=== PATIENT | male | born 1940 | race Caucasian/White ===

== ENCOUNTER 2019-06-21 18:23 | Inpatient (IN) ==
[2019-06-21] MEDS ORDERED: ACETAMINOPHEN 500 MG TAB PO STA (19:26)
[2019-06-21] MEDS ORDERED: SODIUM CHLORIDE 0.9% 1000ML 1,000 ML IV ONE ×2 (19:26→21:03)
[2019-06-21 20:17] LABS: Albumin Level 2.7 gm/dl (3.4-5.0); BUN Creatinine Ratio 23.1 (10-20); Bilirubin Direct 0.4 mg/dl (0-0.2); Calcium 8.7 mg/dl (8.5-10.1); Creatinine Clr Calc Pharmacy 72.7 ml/min; Est GFR (African American) 92.1; Est GFR (Non-African American) 79.5; Magnesium 1.9 mg/dl (1.8-2.4); Potassium 3.8 mmol/L (3.5-5.1)
--- NOTE | 2019-06-21 20:17 | CT Scan Report ---
CT head/brain wo con CLINICAL HISTORY: 78 years-old Male with fall ams. Acute fall with altered mental status TECHNIQUE: Multiple axial CT images of the head were obtained without contrast. A dose lowering tech nique was utilized adhering to the principles of ALARA. CT DOSE: 614.27 mGy.cm COMPARISON: None. FINDINGS: No acute intracranial hemorrhage, midline shift, intracranial mass, hydrocephalus, territorial ischem ia or abnormal extra-axial collection. Mild age-related involutional changes. Patchy white matter hyp odensities suggest chronic microvascular ischemic disease. Cerebral vascular calcifications are noted . The calvarium is intact. Large mastoid effusions with completely opacified mastoid air cells bilater ally. Fluid is noted within the bilateral middle ear cavities, left greater than right. Moderate ethm oid and mild maxillary and sphenoid sinus mucosal thickening. Soft tissues are unremarkable. Prior bi lateral cataract repair. IMPRESSION: 1. No acute intracranial abnormality or calvarial fracture. 2. Age-related involutional changes with chronic microvascular ischemic disease. 3. Paranasal sinus disease as above with large bilateral mastoid effusions and fluid noted within the bilateral middle ear cavities, left greater than right. ACT 112: Negative or not required by law. The above report was generated using voice recognition software. It may contain grammatical, syntax o r spelling errors. Electronically signed by: Boyd Candelario M.D. 06/21/2019 8:16 PM
[2019-06-21 20:22] LABS: Bilirubin,Total 1.3 mg/dl (0.2-1); Troponin I 0.017 ng/ml (0-0.045)
[2019-06-21 20:23] LABS: Acanthocytes 1+; Anisocytosis Present; Basophils # (auto) 0.02 K/uL (0-0.2); Basophils % (auto) 0.2 %; Eosinophils # (auto) 0.26 K/uL (0-0.5); Eosinophils % (auto) 2.1 %; Hematocrit (blood only) 27.9 % (42-52); Hypochromasia Present; INR 1.2 (0.9-1.1); Immature Granulocytes # (auto) 0.23 K/uL (0.00-0.02); Immature Granulocytes % (auto) 1.9 %; Lymphocytes # (auto) 0.46 K/uL (1.2-3.4); Lymphocytes % (auto) 3.8 %; Mean Corpuscular Hemoglobin 24.5 pg (25-34); Mean Corpuscular Hgb Conc 32.3 g/dL (32-36); Monocytes # (auto) 0.09 K/uL (0.11-0.59); Monocytes % (auto) 0.7 %; Neutrophils # (auto) 11.07 K/uL (1.4-6.5); Neutrophils % (auto) 91.3 %; Ovalocytes 1+; Platelet Count 58 K/uL (130-400); Platelet Estimate Decreased (Normal); Polychromasia 1+; Prothrombin Time 11.9 Seconds (9.0-12.0); RDW Coefficient of Variation 23.6 % (11.5-14.5); Red Blood Count 3.67 M/uL (4.7-6.1); White Blood Count 12.13 K/uL (4.8-10.8)
[2019-06-21] MEDS ORDERED: OSELTAMIVIR PHOSPHATE 75 MG CAP PO STA (20:56)
--- NOTE | 2019-06-21 21:02 | XRay Report ---
XR chest 1V portable HISTORY: 78 years-old Male Cough, Sepsis acute cough with sepsis COMPARISON: Chest radiograph 10/21/2018 TECHNIQUE: Portable AP view of the chest FINDINGS: Cardiac silhouette is normal in size. No pneumothorax, overt pulmonary edema or large pleural effusio n. There is mild bilateral hilar prominence. Bilateral reticulonodular opacities are noted with ill-d efined left basilar airspace densities. Mild right hemidiaphragm elevation. Degenerative changes of t he shoulders and spine. IMPRESSION: 1. Reticular nodular opacities with ill-defined left basilar alveolar densities suggest multifocal in fectious or inflammatory pneumonitis. 2. Bilateral hilar prominence is new from 10/21/2018 and may reflect associated adenopathy. Follow-up after treatment course recommended to document resolution. ACT 112: Negative or not required by law. The above report was generated using voice recognition software. It may contain grammatical, syntax o r spelling errors. Electronically signed by: Boyd Candelario M.D. 06/21/2019 9:01 PM
[2019-06-21 21:30] LABS: Appearance Urine Clear (Clear); Bacteria Urine Automated Negative (Negative); Blood Urine Negative (Negative); Color Urine Dark Yellow; Epithelial Cell Urine Auto 0-5 /lpf (0-5); Glucose Urine UA Negative (Negative); Ketones Urine Negative (Negative); Leukocyte Esterase Urine Trace (Negative); Nitrite Urine Negative (Negative); Protein Urine Trace (Negative); RBC Urine Automated 0-4 /hpf (0-4); Specific Gravity Urine 1.024 (1.000-1.030); Urobilinogen Urine Negative (Negative); pH Urine 5.5 (4.5-7.5)
[2019-06-21 21:46] LABS: Bilirubin Urine Negative (Negative); Ictotest Urine Negative (Negative)
[2019-06-21] MEDS ORDERED: ACETAMINOPHEN 325 MG TAB PO PRN (23:43)
[2019-06-21] MEDS ORDERED: ONDANSETRON INJ 2 MG/ML 2 ML VIAL IV PRN (23:43)
[2019-06-22] MEDS ORDERED: CEFEPIME CONSULT ACTIVE PRN (00:05)
[2019-06-22] MEDS: CEFEPIME 2,000 MG in SYRINGE 7.5 ML IV SCH ×3 (00:22→23:33)
[2019-06-22] MEDS: SODIUM CHLORIDE 0.9% 1000ML 1,000 ML IV SCH ×2 (00:23→13:42)
[2019-06-22] MEDS: DOXYCYCLINE HYCLATE 100 MG CAP PO SCH ×3 (00:23→21:34)
--- NOTE | 2019-06-22 00:54 | History and Physical Report ---
DATE OF ADMISSION: 06/21/2019 CHIEF COMPLAINT: Fall and weakness. 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 He went to bathroom and he fell in the bathroom, brought in here. His daughters are in the room. The patient has some fever at home, has cold symptoms in the last few days with runny nose and cough with small amount of phlegm. Denies any chest pain, no shortness of breath, no nausea, no vomiting, no diarrhea, no constipation, no headache, no dizziness, no blurred visions. Has some sore throat. Appetite is okay. Ambulates with a cane. Normal bladder movements. No rash anywhere. Currently resting comfortably and hemodynamically stable. ALLERGIES: No known drug allergies. PAST MEDICAL HISTORY: As mentioned above. PAST SURGICAL HISTORY: Cholecystectomy. MEDICATIONS: Aspirin 81 mg daily, multivitamin daily, omega fish oil 1 capsule daily. FAMILY HISTORY: Significant for father who had colon cancer. SOCIAL HISTORY: Quit smoking 40 years ago, quit chewing tobacco 20 years ago. Alcohol very rarely. Lives with his . REVIEW OF SYMPTOMS: As per HPI. Rest of review of systems is negative. PHYSICAL EXAMINATION: GENERAL: The patient is old and frail, not in acute distress. VITAL SIGNS: Temperature 38, pulse 115, respiratory rate 22, blood pressure 133/73, oxygen 96% room air. HEENT: No pallor, no icterus. Pupils equal, round, reactive to light. NECK: No JVD, no neck masses, no carotid bruits. CARDIOVASCULAR: S1, S2 heard. Tachycardia. No murmurs. RESPIRATORY SYSTEM: Normal AP diameter. No accessory muscle use. No wheezing. Mild bilateral rhonchi heard. ABDOMEN: Soft, bowel sounds present. Nontender. No distention. CENTRAL NERVOUS SYSTEM: Cranial nerves II-XII grossly intact. Nonfocal. EXTREMITIES: No edema, no erythema. LABORATORY DATA: WBC 12.1, hemoglobin 9, hematocrit 27, platelets 58. PT 11.9, INR 1.2. Sodium 135, potassium 3.8, chloride 102, bicarbonate 26, BUN 21, creatinine 0.9, serum glucose 100, lactate 1.5, calcium 8.7, magnesium 1.9, total bilirubin 1.3, direct bilirubin 0.4, AST 42, ALT 37, alkaline phosphatase 280. Troponin I 0.017. Urinalysis, trace leukocyte esterase. Influenza A positive. IMAGING: Chest x-ray, extranodal opacity with ill-defined left basilar alveolar densities suggestive of multifocal infectious or inflammatory pneumonitis, bilateral hilar prominence, new from 10/13/2008 associated adenopathy. . Followup of treatment course recommended to document resolution. CT of the head, no acute intracranial abnormality, microvascular ischemic changes, paranasal sinus disease with large bilateral mastoid effusions and fluid noted within the bilateral middle ear cavities, left greater than right. ASSESSMENT AND PLAN: This is a 78-year-old male who presents with weakness and fall at home and found to be flu positive. 1. Influenza positive, [place] weak and fell in bathroom.Having cold like symptoms in the last couple of days with cough, runny nose and fever. Tamiflu given in the ER, we will continue Tamiflu 75 mg b.i.d., gentle fluids, symptomatic treatment. Monitor in the medical floor. 2. Multifocal pneumonia on the chest x-ray. We will start him on cefepime and doxycycline. Follow the response. We will await sputum culture and blood cultures. 3. Mastoid effusions, fluid in the middle ear. The patient had scarlet fever as child and left eardrum damage. Antibiotics as above ( cefepime to cover pseudomonas). Follow up with ENT. 4. Elevated LFTs with total bilirubin 1.3, alkaline phosphatase of 280. We will follow repeat labs in a.m., probably from the ongoing viral infection. 4. Chronic anemia, 9, was 10 in the September. We will monitor. 5. Chronic thrombocytopenia, platelets were in the 97 last time in September, currently 58, probably from viral illness. Needs to followup. 6. History of prostate cancer, 6 years ago, mild, he refused treatment. Needs followup. 7. History of hypertension, no longer on medications. We will monitor the blood pressure while in the hospital. 8. Deep venous thrombosis prophylaxis, sequential compression devices for now. 9. Disposition: Closely monitor in the medical floor. Level 1 full code only if there is a chance of recovery. PT and OT prior to discharge. Social Service to help with discharge planning. OMAR
--- NOTE | 2019-06-22 01:06 | Emergency Department Note ---
Entered by Rhona Rahman acting as a scribe for Rashel Welsh MD ED Provider Note Name: JENNIFER KU Age: 78 Arrives Via: Ambulance Informant: Patient, Family CC: Fall HPI: [id number] arrives for evaluation of a fall. The patient states that he has been experiencing recent tiredness. Today around 5:30PM he states that he lost his balance and fell in his bathroom but did not hit his head. The patient's family reports that he has had recurrent recent falls in the bathroom and that during today's episode he broke the tank of the toilet when he fell. The patient admits that he is currently not in any pain but his family states that he told them he had "burning" left sided upper back pain below his shoulder when he came to the ED today. Additionally, the family reports that the patient began experiencing a cough 1 day ago associated with rhinorrhea and fever. He was given DayQuil today for relief.Family also notes that he has some confusion. Family includes that they noticed erythema on the patient's forehead that was not present prior to his fall. Of note, he is currently not on Prednisone but is using a dermatological cream for cellulitis. The patient does not have any abdominal pain as per family. The patient and his family offer no further concerns at this time. ROS: See above HPI for pertinent positives & negatives. A total of 10 systems re viewed and were otherwise negative. Past Medical History:Psoriasis, cellulitis of leg Past Surgical History:No pertinent surgical history Family History:No pertinent family history Social History:Never smoker Home Medications:Aspirin, multivitamin, [id number] oil, triamcinolone Allergies:No known Vitals: * BP: 163/86 * Pulse: 124 * Resp: 22 * Temp: 38.5 C * O2 Sat: 99 * Delivery: Room Air Physical Exam: GENERAL: Patient is confused, dehydrated, and ill appearing, and in no acute distress. EYES: No scleral icterus, unremarkable pupils. ENT: Mucous membranes are dry, runny nose. NECK: No masses appreciated, nomeningismus, trachea is midline. RESPIRATORY: No dyspnea. Clear to auscultation and equal bilaterally. No wheeze, no rhonchi. Periodic cough. CARDIOVASCULAR: Regular rate and rhythm.No murmurs, rubs, gallops appreciated. GASTROINTESTINAL: Abdomen soft, non-tender, no peritonitis.Bowel sounds positive.No masses appreciated. BACK: No midline tenderness, no CVA tenderness EXTREMITIES: Normal motion all extremities, no cyanosis, no edema. NEUROLOGIC: Alert and oriented, no acute motor or sensory deficits, no focal weakness, cranial nerves grossly intact. SKIN: No rash, no jaundice, no diaphoresis. ED Course: Prior Medical Record, Triage/Nursing Notes, Medications, Allergies reviewed by Me Vital Signs: reviewed and remarkable for febrile/tachy Labs:Reviewed and remarkable for +Influenza A Interventions: Saline Lock, Tamiflu, NSS bolus 1 L IV, Tylenol 1gm PO Imaging:See below EKG: See below Reassessments/Times: * 1909: Past medical records reviewed. The patient was evaluated in room B05. A complete history and physical exam was performed. * 2030: I spoke to Dr. Mack, [facility] Hospitalist who accepts the patient for admission. * 2100: The patient verbally expressed understanding and agreement of the treatment plan. The patient will be evaluated for further treatment. Blood pressure:Normal.No Referral necessary Disposition:Hospitalization Differentials:Differential: Viral, Pharyngitis, Cellulitis, Pneumonia, Influenza, Meningitis, Sepsis, Bacteremia, UTI/Pyelonephritis, Endocrine, Toxicologic, amongst other pathologies entertained. Medical Decision Makin yr old male with cough, shortness of breath and weakness arrives with family after fall at home and worsening weakness. Febrile and tachy on arrival and thus cultures obtained. Clearly dehydrated by exam and thus IV lfuids given. Flu A positive without clear pneumonia. CT Head negative. Will start on Tamiflu as is tolerating PO but he is too confused and off from his baseline to go home. Thrombocytopenia is not new but is a bit lower than previous. Patient's family does not feel comfortable monitoring at home and given the fall risk in patient already thrombocytopenic I think that is understandable. Hospitalist consulted for further management. Impression: * Influenza A * Acute confusion * Syncope * Acute dehydration The scribe's documentation has been prepared under my direction and personally reviewed by me in its entirety. I confirm that the note above accurately reflects all work, treatment, procedures, and medical decision making performed by me. Rashel Welsh MD Impression & Plan Influenza A, Syncope, Acute confusion, Acute dehydration Past Med/Surg History Medical History Cellulitis of leg Psoriasis Surgical History No pertinent past surgical history Social History Preferred Language: Kiswahili Communication Ability: Effective [employer]ishing V[employer] Required: No Beliefs That Will Affect Care: None Current Living Situation: Spouse and Other Current Living Situation Comment: Son. Other Information That Helps Us Care for You: No Feels Safe at Home: Yes Safety Concerns: Feels Safe At This Time Smoking Status: Never smoker Do You Dip or Chew Tobacco: No ; Second Hand Exposure: No ; Tobacco Cessation Education Requested by Patient: No Hx Alcohol Use: No Hx Substance Use: No Results & Data Vital Signs Vital Signs - 24 hr 06/21/19 18:26 06/21/19 18:37 06/21/19 18:45 Temperature 38.5 C H Temperature Source Oral Pulse Rate 119 H 124 H 118 H Pulse Rate [Right Finger] Pulse Rate from SpO2 Sensor 125 H Pulse Rhythm [Right Finger] Pulse Strength [Right Finger] Respiratory Rate 36 H 22 44 H Respiratory Effort / Characteristics Non-Labored Spontaneous Respiratory Depth Normal Respiratory Pattern Regular Blood Pressure 163/86 H 163/86 H Blood Pressure [Right Arm] Blood Pressure Mean 103 111 Blood Pressure Mean [Right Arm] Blood Pressure Position [Right Arm] Pulse Oximetry 99 Oxygen Delivery Method Room Air Sepsis Recent Fever Within 48 Hours No Sepsis New/Unexplained Change in Mental Status No Sepsis Action Taken by Nursing Physician Notified 06/21/19 19:05 06/21/19 19:30 06/21/19 19:47 Temperature Temperature Source Pulse Rate 118 H 130 H 118 H Pulse Rate [Right Finger] Pulse Rate from SpO2 Sensor 118 H 129 H 118 H Pulse Rhythm [Right Finger] Pulse Strength [Right Finger] Respiratory Rate 36 H 27 H 36 H Respiratory Effort / Characteristics Respiratory Depth Respiratory Pattern Blood Pressure 139/76 Blood Pressure [Right Arm] Blood Pressure Mean 92 Blood Pressure Mean [Right Arm] Blood Pressure Position [Right Arm] Pulse Oximetry 98 94 98 Oxygen Delivery Method Sepsis Recent Fever Within 48 Hours Sepsis New/Unexplained Change in Mental Status Sepsis Action Taken by Nursing 06/21/19 20:00 06/21/19 20:01 06/21/19 20:32 Temperature Temperature Source Pulse Rate 116 H 122 H 118 H Pulse Rate [Right Finger] Pulse Rate from SpO2 Sensor 121 H 122 H 123 H Pulse Rhythm [Right Finger] Pulse Strength [Right Finger] Respiratory Rate 31 H 35 H 33 H Respiratory Effort / Characteristics Respiratory Depth Respiratory Pattern Blood Pressure 148/88 H 133/73 Blood Pressure [Right Arm] Blood Pressure Mean 108 91 Blood Pressure Mean [Right Arm] Blood Pressure Position [Right Arm] Pulse Oximetry 85 L 94 96 Oxygen Delivery Method Sepsis Recent Fever Within 48 Hours Sepsis New/Unexplained Change in Mental Status Sepsis Action Taken by Nursing 06/21/19 20:37 06/21/19 20:45 06/21/19 21:00 Temperature 38 C H Temperature Source Oral Pulse Rate 118 H 110 H Pulse Rate [Right Finger] 115 H Pulse Rate from SpO2 Sensor 117 H 110 H Pulse Rhythm [Right Finger] Regular Pulse Strength [Right Finger] Normal Respiratory Rate 22 36 H 30 H Respiratory Effort / Characteristics Non-Labored Respiratory Depth Normal Respiratory Pattern Regular Blood Pressure 124/67 117/60 Blood Pressure [Right Arm] 133/73 Blood Pressure Mean 84 79 Blood Pressure Mean [Right Arm] 93 Blood Pressure Position [Right Arm] Lying Pulse Oximetry 96 94 94 Oxygen Delivery Method Room Air Sepsis Recent Fever Within 48 Hours Sepsis New/Unexplained Change in Mental Status Sepsis Action Taken by Nursing 06/21/19 21:01 06/21/19 21:15 06/21/19 21:30 Temperature Temperature Source Pulse Rate 113 H 109 H 108 H Pulse Rate [Right Finger] Pulse Rate from SpO2 Sensor 111 H 107 H 108 H Pulse Rhythm [Right Finger] Pulse Strength [Right Finger] Respiratory Rate 29 H 32 H 32 H Respiratory Effort / Characteristics Respiratory Depth Respiratory Pattern Blood Pressure 106/60 103/54 L Blood Pressure [Right Arm] Blood Pressure Mean 76 57 Blood Pressure Mean [Right Arm] Blood Pressure Position [Right Arm] Pulse Oximetry 95 94 91 Oxygen Delivery Method Sepsis Recent Fever Within 48 Hours Sepsis New/Unexplained Change in Mental Status Sepsis Action Taken by Nursing 06/21/19 21:31 06/21/19 21:45 Temperature Temperature Source Pulse Rate 107 H 104 H Pulse Rate [Right Finger] Pulse Rate from SpO2 Sensor 107 H 104 H Pulse Rhythm [Right Finger] Pulse Strength [Right Finger] Respiratory Rate 30 H 36 H Respiratory Effort / Characteristics Respiratory Depth Respiratory Pattern Blood Pressure 110/60 Blood Pressure [Right Arm] Blood Pressure Mean 74 Blood Pressure Mean [Right Arm] Blood Pressure Position [Right Arm] Pulse Oximetry 94 94 Oxygen Delivery Method Sepsis Recent Fever Within 48 Hours Sepsis New/Unexplained Change in Mental Status Sepsis Action Taken by Nursing Laboratory Data Result diagrams: 06/21/19 19:37 06/21/19 19:37 Lab Results 06/21/19 06/21/19 06/21/19 Range/Units 19:37 19:37 19:37 WBC 12.13 H (4.8-10.8) K/uL RBC 3.67 L (4.7-6.1) M/uL Hgb 9.0 L (14.0-18.0) g/dL Hct 27.9 L (42-52) % MCV 76.0 L (80-100) fL MCH 24.5 L (25-34) pg MCHC 32.3 (32-36) g/dL RDW Std Deviation 59.0 H (36.4-46.3) fL RDW Coeff of [place] 23.6 H (11.5-14.5) % Plt Count 58 L (130-400) K/uL Immature Gran % (Auto) 1.9 % Neut % (Auto) 91.3 % Lymph % (Auto) 3.8 % [place] % (Auto) 0.7 % Eos % (Auto) 2.1 % Baso % (Auto) 0.2 % Immature Gran # (Auto) 0.23 H (0.00-0.02) K/uL Neut # (Auto) 11.07 H (1.4-6.5) K/uL Lymph # (Auto) 0.46 L (1.2-3.4) K/uL [place] # (Auto) 0.09 L (0.11-0.59) K/uL Eos # (Auto) 0.26 (0-0.5) K/uL Baso # (Auto) 0.02 (0-0.2) K/uL Platelet Estimate Decreased L (Normal) Polychromasia 1+ Hypochromasia Present Anisocytosis Present Ovalocytes 1+ Acanthocytes (Spur) 1+ PT 11.9 (9.0-12.0) Seconds INR 1.2 H (0.9-1.1) Sodium 135 L (136-145) mmol/L Potassium 3.8 (3.5-5.1) mmol/L Chloride 102 (98-107) mmol/L Carbon Dioxide 26 (21-32) mmol/L Anion Gap 7.0 (3-11) BUN 21 H (7-18) mg/dl Creatinine 0.93 (0.6-1.4) mg/dl Est Cr Clr Drug Dosing 72.7 ml/min Est GFR ( Amer) 92.1 Est GFR (Non-Af Amer) 79.5 BUN/Creatinine Ratio 23.1 H (10-20) Glucose 109 H (70-99) mg/dl Lactate (0.4-2.0) mmol/L Calcium 8.7 (8.5-10.1) mg/dl Magnesium 1.9 (1.8-2.4) mg/dl Total Bilirubin 1.3 H (0.2-1) mg/dl Direct Bilirubin 0.4 H (0-0.2) mg/dl AST 42 H (15-37) U/L ALT 37 (12-78) U/L Alkaline Phosphatase 280 H (45-117) U/L Troponin I 0.017 (0-0.045) ng/ml Total Protein 7.0 (6.4-8.2) gm/dl Albumin 2.7 L (3.4-5.0) gm/dl Urine Color Urine Appearance (Clear) Urine pH (4.5-7.5) Ur Specific [place] (1.000-1.030) Urine Protein (Negative) Urine Glucose (UA) (Negative) Urine Ketones (Negative) Urine Blood (Negative) Urine Nitrite (Negative) Urine Bilirubin (Negative) Urine Urobilinogen (Negative) Ur Leukocyte Esterase (Negative) Urine WBC (Auto) (0-5) /hpf Urine RBC (Auto) (0-4) /hpf U Hyaline Cast (Auto) (0-5) /lpf U Epithel Cells (Auto) (0-5) /lpf Urine Bacteria (Auto) (Negative) Influenza Type A Ag (Neg) Influenza Type B Ag (Neg) 06/21/19 06/21/19 06/21/19 Range/Units 19:37 19:56 20:38 WBC (4.8-10.8) K/uL RBC (4.7-6.1) M/uL Hgb (14.0-18.0) g/dL Hct (42-52) % MCV (80-100) fL MCH (25-34) pg MCHC (32-36) g/dL RDW Std Deviation (36.4-46.3) fL RDW Coeff of [place] (11.5-14.5) % Plt Count (130-400) K/uL Immature Gran % (Auto) % Neut % (Auto) % Lymph % (Auto) % [place] % (Auto) % Eos % (Auto) % Baso % (Auto) % Immature Gran # (Auto) (0.00-0.02) K/uL Neut # (Auto) (1.4-6.5) K/uL Lymph # (Auto) (1.2-3.4) K/uL [place] # (Auto) (0.11-0.59) K/uL Eos # (Auto) (0-0.5) K/uL Baso # (Auto) (0-0.2) K/uL Platelet Estimate (Normal) Polychromasia Hypochromasia Anisocytosis Ovalocytes Acanthocytes (Spur) PT (9.0-12.0) Seconds INR (0.9-1.1) Sodium (136-145) mmol/L Potassium (3.5-5.1) mmol/L Chloride (98-107) mmol/L Carbon Dioxide (21-32) mmol/L Anion Gap (3-11) BUN (7-18) mg/dl Creatinine (0.6-1.4) mg/dl Est Cr Clr Drug Dosing ml/min Est GFR ( Amer) Est GFR (Non-Af Amer) BUN/Creatinine Ratio (10-20) Glucose (70-99) mg/dl Lactate 1.5 (0.4-2.0) mmol/L Calcium (8.5-10.1) mg/dl Magnesium (1.8-2.4) mg/dl Total Bilirubin (0.2-1) mg/dl Direct Bilirubin (0-0.2) mg/dl AST (15-37) U/L ALT (12-78) U/L Alkaline Phosphatase (45-117) U/L Troponin I (0-0.045) ng/ml Total Protein (6.4-8.2) gm/dl Albumin (3.4-5.0) gm/dl Urine Color Dark Yellow Urine Appearance Clear (Clear) Urine pH 5.5 (4.5-7.5) Ur Specific [place] 1.024 (1.000-1.030) Urine Protein Trace H (Negative) Urine Glucose (UA) Negative (Negative) Urine Ketones Negative (Negative) Urine Blood Negative (Negative) Urine Nitrite Negative (Negative) Urine Bilirubin Negative (Negative) Urine Urobilinogen Negative (Negative) Ur Leukocyte Esterase Trace H (Negative) Urine WBC (Auto) 1-5 (0-5) /hpf Urine RBC (Auto) 0-4 (0-4) /hpf U Hyaline Cast (Auto) 1-5 (0-5) /lpf U Epithel Cells (Auto) 0-5 (0-5) /lpf Urine Bacteria (Auto) Negative (Negative) Influenza Type A Ag Pos for Influ A A* (Neg) Influenza Type B Ag Neg for Influ B (Neg) Administered Medications Doxycycline Hyclate (Vibramycin) 100 mg PO BID [facility] Stop: 06/28/19 23:42 Last Admin: 06/22/19 00:23 Dose: 100 mg Documented by: [id number] Sodium Chloride (Nss 1000ml) 1,000 mls @ 80 mls/hr IV .[id number] SERA Stop: 07/21/19 23:42 Last Admin: 06/22/19 00:23 Dose: 80 mls/hr Documented by: [id number] Cefepime HCl 2,000 mg/ Syringe 20 mls @ 5.5 mls/min IV Q12H [facility]; Protocol Stop: 06/29/19 00:00 Last Admin: 06/22/19 00:22 Dose: 5.5 mls/min Documented by: [id number] Discontinued Medications Acetaminophen (Tylenol) 1,000 mg PO NOW STA Stop: 06/21/19 19:27 Last Admin: 06/21/19 19:54 Dose: 1,000 mg Documented by: [id number] Sodium Chloride (Nss 1000ml) 1,000 mls @ 999 mls/hr IV .Q1H1M ONE Stop: 06/21/19 20:26 Last Infusion: 06/21/19 20:45 Dose: 0 mls/hr Documented by: [id number] Admin: 06/21/19 19:53 Dose: 999 mls/hr Documented by: [id number] Sodium Chloride (Nss 1000ml) 1,000 mls @ 999 mls/hr IV .Q1H1M ONE Stop: 06/21/19 22:03 Last Infusion: 06/21/19 22:41 Dose: 0 mls/hr Documented by: [id number] Admin: 06/21/19 21:40 Dose: 999 mls/hr Documented by: [id number] Oseltamivir Phosphate (Tamiflu) 75 mg PO NOW STA Stop: 06/21/19 20:57 Last Admin: 06/21/19 21:40 Dose: 75 mg Documented by: [id number] Imaging Data Radiologist's Impression: Radiology results as stated below per my review and the radiologist's interpretation: XR chest 1V portable HISTORY: 78 years-old Male Cough, Sepsis acute cough with sepsis COMPARISON: Chest radiograph 10/21/2018 TECHNIQUE: Portable AP view of the chest FINDINGS: Cardiac silhouette is normal in size. No pneumothorax, overt pulmonary edema or large pleural effusion. There is mild bilateral hilar prominence. Bilateral reticulonodular opacities are noted with ill-defined left basilar airspace densities. Mild right hemidiaphragm elevation. Degenerative changes of the s houlders and spine. IMPRESSION: 1. Reticular nodular opacities with ill-defined left basilar alveolar densities suggest multifocal infectious or inflammatory pneumonitis. 2. Bilateral hilar prominence is new from 10/21/2018 and may reflect associated adenopathy. Follow-up after treatment course recommended to document resolution. ACT 112: Negative or not required by law. The above report was generated using voice recognition software. It may contain grammatical, syntax or spelling errors. Electronically signed by: Boyd Candelario M.D. 06/21/2019 9:[address] head/brain wo con CLINICAL HISTORY: 78 years-old Male with fall ams. Acute fall with altered mental status TECHNIQUE: Multiple axial CT images of the head were obtained without contrast. A dose lowering technique was utilized adhering to the principles of ALARA. CT DOSE: 614.27 mGy.cm COMPARISON: None. FINDINGS: No acute intracranial hemorrhage, midline shift, intracranial mass, hydrocephalus, territorial ischemia or abnormal extra-axial collection. Mild age-related involutional changes. Patchy white matter hypodensities suggest chronic microvascular ischemic disease. Cerebral vascular calcifications are noted. The calvarium is intact. Large mastoid effusions with completely opacified mastoid air cells bilaterally. Fluid is noted within the bilateral middle ear cavities, left greater than right. Moderate ethmoid and mild maxillary and sphenoid sinus mucosal thickening. Soft tissues are unremarkable. Prior bilateral cataract repair. IMPRESSION: 1. No acute intracranial abnormality or calvarial fracture. 2. Age-related involutional changes with chronic microvascular ischemic disease. 3. Paranasal sinus disease as above with large bilateral mastoid effusions and fluid noted within the bilateral middle ear cavities, left greater than right. ACT 112: Negative or not required by law. The above report was generated using voice recognition software. It may contain grammatical, syntax or spelling errors. Electronically signed by: Boyd Candelario M.D. 06/21/2019 8:16 PM Discharge Plan Visit Data *Final* Discharge Date/Time: 06/21/19 22:49 Chief Complaint: Fall Stated Complaint: fall ED Provider: Rashel Welsh Discharge Problem: Influenza A, Syncope, Acute confusion, Acute dehydration Patient Disposition: Admitted As Inpatient Discharge Instructions Interventions: ED Discharge Assessment Last Done: 06/21/19 22:49 Discharge Problem: Syncope Qualifiers: Syncope type: unspecified Qualified Code(s): R55 - Syncope and collapse The scribe's documentation has been prepared under my direction and personally reviewed by me in its entirety. I confirm that the note above accurately reflects all work, treatment, procedures, and medical decision making performed by me.
[2019-06-22 05:37] LABS: Mean Corpuscular Hgb Conc 32.8 g/dL (32-36)
[2019-06-22 06:02] LABS: BUN Creatinine Ratio 24.7 (10-20); Calcium 8.3 mg/dl (8.5-10.1); Creatinine Clr Calc Pharmacy 95.6 ml/min; Est GFR (African American) 105.6; Est GFR (Non-African American) 91.1; Magnesium 1.9 mg/dl (1.8-2.4); Potassium 3.9 mmol/L (3.5-5.1)
[2019-06-22 06:23] LABS: Hematocrit (blood only) 26.2 % (42-52); Hemoglobin 8.6 g/dL (14.0-18.0); Mean Corpuscular Hemoglobin 25.1 pg (25-34); Mean Corpuscular Volume 76.4 fL (80-100); RDW Coefficient of Variation 23.8 % (11.5-14.5); RDW Standard Deviation 60.4 fL (36.4-46.3); Red Blood Count 3.43 M/uL (4.7-6.1); White Blood Count 9.07 K/uL (4.8-10.8)
[2019-06-22 06:33] LABS: Acanthocytes 1+; Anisocytosis Present; Basophilic Stippling Occasional; Basophils # (auto) 0.02 K/uL (0-0.2); Basophils % (auto) 0.2 %; Eosinophils # (auto) 0.28 K/uL (0-0.5); Eosinophils % (auto) 3.1 %; Hypochromasia Present; Immature Granulocytes # (auto) 0.14 K/uL (0.00-0.02); Immature Granulocytes % (auto) 1.5 %; Lymphocytes # (auto) 0.64 K/uL (1.2-3.4); Lymphocytes % (auto) 7.1 %; Monocytes # (auto) 0.03 K/uL (0.11-0.59); Monocytes % (auto) 0.3 %; Neutrophils # (auto) 7.96 K/uL (1.4-6.5); Neutrophils % (auto) 87.8 %; Platelet Count 43 K/uL (130-400); Platelet Estimate SIGNIFIC DECREASED (Normal); Polychromasia 1+
[2019-06-22] MEDS: ASPIRIN 81 MG ECTAB PO SCH (09:42)
[2019-06-22] MEDS: MULTIVITAMIN TAB PO SCH (09:42)
[2019-06-22] MEDS: OSELTAMIVIR PHOSPHATE 75 MG CAP PO SCH ×2 (09:43→21:34)
[2019-06-22] MEDS ORDERED: INFLUENZA Vaccine HIGH DOSE 65+yrs 0.5 mL Syr IM ONE (11:15)
--- NOTE | 2019-06-22 14:57 | Hospitalist Progress Note ---
Date of Service 06/23June 22, 2019 Assessment & Plan (1) Influenza A: Flulike symptoms for a day or 2 Influenza A is positive Started on Tamiflu Droplet clinical precaution Clinically much better (2) Multifocal pneumonia: Noted to have multifocal pneumonia/pneumonitis Started on intravenous cefepime and doxycycline Clinically better We will get repeat chest x-ray tomorrow Continue current antibiotics (3) Chronic idiopathic thrombocytopenia: Thrombocytopenia is worse today Likely complicated by viral illness Will monitor (4) Hypertension: Blood pressure is controlled Continue current medications Severely deaf Since childhood Noted to have mastoid fluid on CAT scan Antibiotics given for pneumonia will help if there is any infection Outpatient ENT follow-up Subjective 06/22 The patient was seen and examined in medical floor He is very deaf since childhood and was admitted with cold-like symptoms for the last day or 2 He has been feeling a little bit better since admission Denies any significant symptoms 06/23 He has been feeling a little bit better today Complains to have diarrhea Shortness of breath is better, no fever, cough is better Review of Systems Review of Systems: All systems are reviewed and are unremarkable except as noted below Respiratory: + cough, + chest congestion and + dyspnea on exertion Cardiovascular: no chest pain Physical Exam Physical Exam: Lying in bed comfortably Constitutional: well developed, well nourished and + ill appearing; no acute distress Eyes: PERRL, conjunctivae normal, anicteric sclerae ENMT: 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 Neck: trachea midline, no thyromegaly Respiratory: normal respiratory effort Auscultation: + diminished lung sounds (Diminished breath sounds at the bases with occasional crackles) Cardiovascular: Rate/Rhythm: regular rate and regular rhythm Heart Sounds: no murmur Gastrointestinal (Abdomen): Inspection/Auscultation: abdomen normal to inspection and normal bowel sounds Musculoskeletal: No acute arthritis in any joints Lymphatic: no cervical or axillary lymphadenopathy Results & Data Vital Signs (Past 12 Hours) Vital Signs Temp Pulse Resp BP Pulse Ox 06/22/19 07:27 37.5 C 116 H 23 125/70 98 Laboratory Results Short CBC 06/21/19 06/22/19 Range/Units 19:37 05:09 WBC 12.13 H 9.07 (4.8-10.8) K/uL Hgb 9.0 L 8.6 L (14.0-18.0) g/dL Hct 27.9 L 26.2 L (42-52) % Plt Count 58 L 43 L (130-400) K/uL BMP 06/21/19 06/22/19 19:37 05:09 Sodium 135 L 136 Potassium 3.8 3.9 Chloride 102 106 Carbon Dioxide 26 24 BUN 21 H 18 Creatinine 0.93 0.71 Glucose 109 H 89 Calcium 8.7 8.3 L Cardiac Enzymes 06/21/19 Range/Units 19:37 Troponin I 0.017 (0-0.045) ng/ml Liver Function 06/21/19 Range/Units 19:37 Total Bilirubin 1.3 H (0.2-1) mg/dl Direct Bilirubin 0.4 H (0-0.2) mg/dl AST 42 H (15-37) U/L ALT 37 (12-78) U/L Alkaline Phosphatase 280 H (45-117) U/L Albumin 2.7 L (3.4-5.0) gm/dl Urine 06/21/19 Range/Units 20:38 Urine Color Dark Yellow Urine Appearance Clear (Clear) Urine pH 5.5 (4.5-7.5) Ur Specific [place] 1.024 (1.000-1.030) Urine Protein Trace H (Negative) Urine Glucose (UA) Negative (Negative) 06/23 White blood cell count improved Noted to have low potassium and that was replaced Medications Administered Current Inpatient Medications Acetaminophen (Tylenol) 650 mg PO Q4H PRN PRN Reason: pain/fever Stop: 07/21/19 23:42 Aspirin (Ecotrin Ectab) 81 mg PO DAILY [facility] Stop: 07/22/19 08:59 Last Admin: 06/22/19 09:42 Dose: 81 mg Documented by: Doxycycline Hyclate (Vibramycin) 100 mg PO BID [facility] Stop: 06/28/19 23:42 Last Admin: 06/22/19 09:43 Dose: 100 mg Documented by: Sodium Chloride (Nss 1000ml) 1,000 mls @ 80 mls/hr IV .[id number] [facility] Stop: 07/21/19 23:42 Last Admin: 06/22/19 13:42 Dose: 80 mls/hr Documented by: Cefepime HCl 2,000 mg/ Syringe 20 mls @ 5.5 mls/min IV Q12H [facility]; Protocol Stop: 06/29/19 00:00 Last Admin: 06/22/19 13:43 Dose: 5.5 mls/min Documented by: Miscellaneous Information (Cefepime Consult Active) 1 ea N/A UD PRN PRN Reason: Consult Stop: 07/22/19 00:04 Multivitamins (Multivitamin Tab) 1 tab PO DAILY [facility] Stop: 07/22/19 08:59 Last Admin: 06/22/19 09:42 Dose: 1 tab Documented by: Ondansetron HCl (Zofran) 4 mg IV Q6H PRN PRN Reason: Nausea Stop: 07/21/19 23:42 Oseltamivir Phosphate (Tamiflu) 75 mg PO BID [facility] Stop: 06/27/19 08:59 Last Admin: 06/22/19 09:43 Dose: 75 mg Documented by:
[2019-06-23] MEDS: SODIUM CHLORIDE 0.9% 1000ML 1,000 ML IV SCH ×2 (02:22→13:11)
[2019-06-23 05:50] LABS: Mean Corpuscular Hgb Conc 32.4 g/dL (32-36)
[2019-06-23 06:04] LABS: Hematocrit (blood only) 24.1 % (42-52); Hemoglobin 7.8 g/dL (14.0-18.0); Mean Corpuscular Hemoglobin 24.9 pg (25-34); RDW Coefficient of Variation 23.5 % (11.5-14.5); RDW Standard Deviation 60.2 fL (36.4-46.3); Red Blood Count 3.13 M/uL (4.7-6.1); White Blood Count 7.43 K/uL (4.8-10.8)
[2019-06-23 06:08] LABS: Albumin Globulin Ratio 0.5 (0.9-2); Albumin Level 1.9 gm/dl (3.4-5.0); BUN Creatinine Ratio 27.1 (10-20); Bilirubin,Total 0.7 mg/dl (0.2-1); Calcium 7.9 mg/dl (8.5-10.1); Creatinine Clr Calc Pharmacy 98.4 ml/min; Est GFR (African American) 106.9; Est GFR (Non-African American) 92.2; Globulin 3.6 gm/dl (2.5-4.0); Potassium 3.3 mmol/L (3.5-5.1); Total Protein 5.5 gm/dl (6.4-8.2)
[2019-06-23 06:28] LABS: Acanthocytes 1+; Anisocytosis Present; Basophils # (auto) 0.02 K/uL (0-0.2); Basophils % (auto) 0.3 %; Eosinophils % (auto) 5.4 %; Immature Granulocytes # (auto) 0.11 K/uL (0.00-0.02); Immature Granulocytes % (auto) 1.5 %; Lymphocytes # (auto) 0.61 K/uL (1.2-3.4); Lymphocytes % (auto) 8.2 %; Monocytes % (auto) 1.3 %; Neutrophils # (auto) 6.19 K/uL (1.4-6.5); Neutrophils % (auto) 83.3 %; Platelet Count 34 K/uL (130-400); Platelet Estimate SIGNIFIC DECREASED (Normal); Poikilocytosis Present; Schistocytes 1+
[2019-06-23] MEDS ORDERED: POTASSIUM CHLORIDE 20 MEQ TABCR PO STA ×2 (06:42→08:24)
[2019-06-23] MEDS: MULTIVITAMIN TAB PO SCH (08:03)
[2019-06-23] MEDS: ASPIRIN 81 MG ECTAB PO SCH (08:03)
[2019-06-23] MEDS: OSELTAMIVIR PHOSPHATE 75 MG CAP PO SCH ×2 (08:04→21:27)
[2019-06-23] MEDS: DOXYCYCLINE HYCLATE 100 MG CAP PO SCH ×2 (08:04→21:27)
[2019-06-23] MEDS ORDERED: LOPERAMIDE HCL 2 MG CAP PO PRN (10:27)
[2019-06-23] MEDS: CEFEPIME 2,000 MG in SYRINGE 7.5 ML IV SCH ×2 (13:11→23:07)
[2019-06-23] MEDS ORDERED: CALCIUM CARBONATE 500 MG CHEWABLE TAB PO PRN (22:10)
[2019-06-24] MEDS: SODIUM CHLORIDE 0.9% 1000ML 1,000 ML IV SCH ×2 (01:27→13:26)
--- NOTE | 2019-06-24 08:08 | XRay Report ---
TWO VIEW CHEST CLINICAL HISTORY: Pneumonia. FINDINGS: PA and lateral chest radiographs are compared to study dated 06/21/2019. The cardiomediasti nal silhouette is unremarkable. There is multifocal patchy/nodular airspace consolidation. Scarring/a telectasis is seen at the lung bases. No pleural effusion or pneumothorax is seen. The skeletal struc tures are osteopenic. The bony thorax appears intact. Degenerative change is noted throughout the tho racic spine. IMPRESSION: There is multifocal patchy/nodular airspace consolidation. Correlate clinically for evide nce of pneumonia. Radiographic follow-up to resolution is recommended ACT 112: Negative or not required by law. Electronically signed by: Esteban Wills M.D. 06/24/2019 8:06 AM
[2019-06-24] MEDS: DOXYCYCLINE HYCLATE 100 MG CAP PO SCH (08:51)
[2019-06-24] MEDS: OSELTAMIVIR PHOSPHATE 75 MG CAP PO SCH (08:51)
[2019-06-24] MEDS: MULTIVITAMIN TAB PO SCH (08:51)
[2019-06-24] MEDS: ASPIRIN 81 MG ECTAB PO SCH (08:51)
[2019-06-24 09:06] LABS: Mean Corpuscular Hgb Conc 31.8 g/dL (32-36)
[2019-06-24 09:42] LABS: Acanthocytes 1+; Anisocytosis Present; Basophils # (auto) 0.03 K/uL (0-0.2); Basophils % (auto) 0.4 %; Eosinophils # (auto) 0.44 K/uL (0-0.5); Hematocrit (blood only) 26.9 % (42-52); Hemoglobin 8.7 g/dL (14.0-18.0); Immature Granulocytes % (auto) 4.1 %; Lymphocytes # (auto) 0.53 K/uL (1.2-3.4); Lymphocytes % (auto) 7.2 %; Mean Corpuscular Hemoglobin 24.6 pg (25-34); Mean Corpuscular Volume 76.2 fL (80-100); Monocytes # (auto) 0.03 K/uL (0.11-0.59); Monocytes % (auto) 0.4 %; Neutrophils # (auto) 5.99 K/uL (1.4-6.5); Neutrophils % (auto) 81.9 %; Platelet Count 51 K/uL (130-400); Platelet Estimate SIGNIFIC DECREASED (Normal); RDW Coefficient of Variation 23.8 % (11.5-14.5); RDW Standard Deviation 59.4 fL (36.4-46.3); Red Blood Count 3.53 M/uL (4.7-6.1); Schistocytes 1+; Tear Drop Cells 1+; White Blood Count 7.32 K/uL (4.8-10.8)
[2019-06-24 09:47] LABS: BUN Creatinine Ratio 23.4 (10-20); Calcium 8.3 mg/dl (8.5-10.1); Creatinine Clr Calc Pharmacy 104.5 ml/min; Est GFR (African American) 109.5; Est GFR (Non-African American) 94.5; Potassium 3.4 mmol/L (3.5-5.1)
[2019-06-24] MEDS ORDERED: CEFDINIR 300 MG CAP PO STA (12:44)
[2019-06-24] MEDS ORDERED: cephALEXin 500 MG CAP PO SCH (13:00)
--- NOTE | 2019-06-24 13:39 | Hospitalist Progress Note ---
Date of Service June 24, 2019 Assessment & Plan (1) Influenza A: Flulike symptoms for a day or 2 Influenza A is positive Started on Tamiflu Droplet clinical precaution Clinically much better-wants to go home Will finish the course of Tamiflu (2) Multifocal pneumonia: Noted to have multifocal pneumonia/pneumonitis Started on intravenous cefepime and doxycycline Clinically better We will get repeat chest x-ray tomorrow Continue current antibiotics Antibiotic has been changed to oral Will be discharged today (3) Chronic idiopathic thrombocytopenia: Thrombocytopenia is worse today Likely complicated by viral illness Will monitor-platelet count is better today at 51 (4) Hypertension: Blood pressure is controlled Continue current medications Severely deaf Since childhood Noted to have mastoid fluid on CAT scan Antibiotics given for pneumonia will help if there is any infection Outpatient ENT follow-up Subjective 06/22 The patient was seen and examined in medical floor He is very deaf since childhood and was admitted with cold-like symptoms for the last day or 2 He has been feeling a little bit better since admission Denies any significant symptoms 06/23 He has been feeling a little bit better today Complains to have diarrhea Shortness of breath is better, no fever, cough is better 06/24 Patient was seen and examined in medical floor He has been feeling a lot better He is very deaf but denies any symptoms as of today Denies any cough and/or shortness of breath Has been ambulating without any difficulty Review of Systems Review of Systems: All systems are reviewed and are unremarkable except as noted below Respiratory: + cough; no chest congestion and no dyspnea on exertion Physical Exam Physical Exam: Sitting on a chair without any symptoms Constitutional: well developed, well nourished and + ill appearing; no acute distress Eyes: PERRL, conjunctivae normal, anicteric sclerae Neck: trachea midline, no thyromegaly Respiratory: normal respiratory effort Auscultation: + diminished lung sounds (Diminished breath sounds at the bases with occasional crackles) Cardiovascular: Rate/Rhythm: regular rate and regular rhythm Heart Sounds: no murmur Gastrointestinal (Abdomen): Inspection/Auscultation: abdomen normal to inspection and normal bowel sounds Musculoskeletal: no cyanosis or clubbing, extremities motor strength 5/5 Neurologic: Alert, awake and oriented x3 Lymphatic: no cervical or axillary lymphadenopathy Results & Data Vital Signs (Past 12 Hours) Vital Signs Temp Pulse Pulse Pulse Pulse Resp Resp 06/24/19 11:28 97 H 90 92 H 20 12/30/19 07:05 36.4 C L 88 16 Resp Resp BP Pulse Ox Pulse Ox Pulse Ox Pulse Ox 06/24/19 11:28 20 20 98 98 99 06/24/19 07:05 122/73 98 Laboratory Results Short CBC 06/24/19 Range/Units 08:37 WBC 7.32 (4.8-10.8) K/uL Hgb 8.7 L (14.0-18.0) g/dL Hct 26.9 L (42-52) % Plt Count 51 L (130-400) K/uL BMP 06/24/19 08:37 Sodium 135 L Potassium 3.4 L Chloride 106 Carbon Dioxide 26 BUN 15 Creatinine 0.65 Glucose 91 Calcium 8.3 L Medications Administered Current Inpatient Medications Acetaminophen (Tylenol) 650 mg PO Q4H PRN PRN Reason: pain/fever Stop: 07/21/19 23:42 Aspirin (Ecotrin Ectab) 81 mg PO DAILY [facility] Stop: 07/22/19 08:59 Last Admin: 06/24/19 08:51 Dose: 81 mg Documented by: Calcium Carbonate (Tums) 500 mg PO TID PRN PRN Reason: Indigestion Stop: 07/23/19 22:09 Last Admin: 06/23/19 23:06 Dose: 500 mg Documented by: Doxycycline Hyclate (Vibramycin) 100 mg PO BID [facility] Stop: 06/28/19 23:42 Last Admin: 06/24/19 08:51 Dose: 100 mg Documented by: Sodium Chloride (Nss 1000ml) 1,000 mls @ 80 mls/hr IV .[id number] [facility] Stop: 07/21/19 23:42 Last Admin: 06/24/19 13:26 Dose: 80 mls/hr Documented by: Loperamide HCl (Imodium) 2 mg PO Q3H PRN PRN Reason: Diarrhea Stop: 07/23/19 10:26 Multivitamins (Multivitamin Tab) 1 tab PO DAILY [facility] Stop: 07/22/19 08:59 Last Admin: 06/24/19 08:51 Dose: 1 tab Documented by: Ondansetron HCl (Zofran) 4 mg IV Q6H PRN PRN Reason: Nausea Stop: 07/21/19 23:42 Oseltamivir Phosphate (Tamiflu) 75 mg PO BID [facility] Stop: 06/27/19 08:59 Last Admin: 06/24/19 08:51 Dose: 75 mg Documented by:
--- NOTE | 2019-06-25 08:21 | Discharge Summary ---
Date of Service June 25, 2019 Admission HPI Per Admitting Provider DICTATED BY: Donovan Mack MD DATE OF ADMISSION: 06/21/2019 CHIEF COMPLAINT: Fall and weakness. 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 He went to bathroom and he fell in the bathroom, brought in here. His daughters are in the room. The patient has some fever at home, has cold symptoms in the last few days with runny nose and cough with small amount of phlegm. Denies any chest pain, no shortness of breath, no nausea, no vomiting, no diarrhea, no constipation, no headache, no dizziness, no blurred visions. Has some sore throat. Appetite is okay. Ambulates with a cane. Normal bladder movements. No rash anywhere. Currently resting comfortably and hemodynamically stable. Admission Exam Per Admitting Provider GENERAL: The patient is old and frail, not in acute distress. VITAL SIGNS: Temperature 38, pulse 115, respiratory rate 22, blood pressure 133/73, oxygen 96% room air. HEENT: No pallor, no icterus. Pupils equal, round, reactive to light. NECK: No JVD, no neck masses, no carotid bruits. CARDIOVASCULAR: S1, S2 heard. Tachycardia. No murmurs. RESPIRATORY SYSTEM: Normal AP diameter. No accessory muscle use. No wheezing. Mild bilateral rhonchi heard. ABDOMEN: Soft, bowel sounds present. Nontender. No distention. CENTRAL NERVOUS SYSTEM: Cranial nerves II-XII grossly intact. Nonfocal. EXTREMITIES: No edema, no erythema. Principal Diagnosis Influenza A, multifocal pneumonia, chronic idiopathic thrombocytopenia, hypertension Discharge Exam Constitutional well developed, well nourished and + ill appearing; no acute distress Eyes PERRL, conjunctivae normal, anicteric sclerae Neck trachea midline, no thyromegaly Respiratory normal respiratory effort Auscultation: + diminished lung sounds (Diminished breath sounds at the bases with occasional crackles) Cardiovascular Rate/Rhythm: regular rate and regular rhythm Heart Sounds: no murmur Gastrointestinal (Abdomen) Inspection/Auscultation: abdomen normal to inspection and normal bowel sounds Musculoskeletal no cyanosis or clubbing, extremities motor strength 5/5 Lymphatic no cervical or axillary lymphadenopathy Discharge Data Allergies Allergy/AdvReac Type Severity Reaction Status Date / Time No Known Allergies Allergy Verified 06/21/19 21:26 Consultations 06/21/19 21:05 ED Decision to Admit Stat 06/21/19 23:43 Consult Case Management - Discharge Planning Routine Ordered Studies 06/21/19 19:27 CT head/brain wo con Stat Hospital Course (1) Influenza A: Flulike symptoms for a day or 2 Influenza A is positive Started on Tamiflu Droplet clinical precaution Clinically much better-wants to go home Will finish the course of Tamiflu (2) Multifocal pneumonia: Noted to have multifocal pneumonia/pneumonitis Started on intravenous cefepime and doxycycline Clinically better We will get repeat chest x-ray tomorrow Continue current antibiotics Antibiotic has been changed to oral Will be discharged today (3) Chronic idiopathic thrombocytopenia: Thrombocytopenia is worse today Likely complicated by viral illness Will monitor-platelet count is better today at 51 (4) Hypertension: Blood pressure is controlled Continue current medications Severely deaf Since childhood Noted to have mastoid fluid on CAT scan Antibiotics given for pneumonia will help if there is any infection Outpatient ENT follow-up Total Time Total Time Spent Total Time Spent (In Minutes): 35 minutes Total Time Includes: Examination of the Patient, Discharge Planning, Medication Reconciliation and Communication With Other Providers Discharge Plan Discharge Items Patient Disposition: Home - Self-Care Reason For Visit: fall Discharge Diagnosis: Influenza A, multifocal pneumonia, chronic idiopathic thrombocytopenia, hypertension Condition on Discharge: Good Activity: Resume your previous activity Non-emergency contact: Primary Care Provider Call non-emergency contact if: you have any medication questions Follow-up/Referrals: Rashel Schmidt DO [Primary Care Provider] - (Please make an appointment with your primary care physician within 1 week) Diet: Heart Healthy Addtl Attending Provider Instructions: Please take precaution to avoid falls Try to drink more fluid Finish the course of antibiotic Pending Studies at Discharge: No Stand-Alone Forms: [employer], Smoking Cessation Medications and DC Order Prescriptions: New doxycycline hyclate 100 mg Capsule 100 mg PO BID 7 Days Qty: 14 RF: 0 oseltamivir [Tamiflu] 75 mg Capsule 75 mg PO BID 2 Days Qty: 4 RF: 0 cefdinir 300 mg capsule 300 mg PO BID 7 Days Qty: 14 RF: 0 Lactinex 1 million cell tablet,chewable 1 tab PO BID Qty: 30 RF: 0 Continued triamcinolone acetonide 0.1 % ointment TOPICAL RF: 0 multivitamin Tablet 1 tab PO DAILY RF: 0 aspirin 81 mg Tablet,Chewable 81 mg PO DAILY RF: 0 omega [id number] oil [Fish Oil] 1,000 mg (120 mg-180 mg) Capsule 1 cap PO DAILY RF: 0 Discharge Orders: Discharge Order (Routine); Ordered 06/24/19 Ordered By: Lizbeth Sosa/Other Patient Handouts: Meds Pain Admission Data Admit Date/Time: 06/21/19 21:51 Attending Provider: Lizbeth Bhat Admit Provider: Donovan Mack Primary Care Provider: Rashel Schmidt Other Providers: Donovan Mack Other Interventions: Discharge Summary Assessment (RN) Last Done: 06/24/19 13:51 DC Date/Time DO NOT enter until pt leaves facility: 06/24/19 17:49
== END 2019-06-24 17:49 | disposition home or self-care (01) | DRG 871 ==
LOC: ED 18:23 → 3N 21:51